=== PATIENT | male | born 1970 ===

== ENCOUNTER 2020-05-04 21:16 | Emergency (ER) | payer SELFPAY ==
[2020-05-04] MEDS ORDERED: SODIUM CHLORIDE 0.9% 1000 ML 1,000 ML IV ONE ×2 (21:53→22:56)
[2020-05-04] MEDS ORDERED: INSULIN REGULAR, HUMAN 100 UNITS/1 ML IV ONE ×2 (21:54→22:56)
--- NOTE | 2020-05-04 21:57 | Emergency Department Report ---
ED General Adult HPI - General Chief complaint: Hyperglycemia Stated complaint: HIGH BLOOD SUGAR Time Seen by Provider: 05/04/20 21:47 Source: patient Mode of arrival: Ambulatory Limitations: No Limitations - History of Present Illness Initial comments: Patient is 50 years old male with no significant past medical history. Patient presented to the ER stating that he went to a primary doctor today for increased urinary frequency and thirsty and they check his blood sugar and he was told that his blood sugar is high and he need to come to the ER. Translation by nurse Pedersen. Patient stated that he never saw any doctor recently. He denied any other medical problem. Patient denied any fever, chills, cough, nausea or vomiting. No chest pain or shortness of breath. - Related Data Previous Rx's Medication Instructions Recorded Last Taken Type glipiZIDE [Glucotrol] 5 mg PO BID #60 tablet 05/05/20 Unknown Rx metFORMIN [Glucophage] 500 mg PO BID #60 tablet 05/05/20 Unknown Rx Allergies Allergy/AdvReac Type Severity Reaction Status Date / Time No Known Allergies Allergy Verified 05/04/20 21:40 ED Review of Systems ROS: Stated complaint: HIGH BLOOD SUGAR Other details as noted in HPI Comment: All other systems reviewed and negative Constitutional: denies: chills, fever Respiratory: denies: cough, shortness of breath, SOB with exertion Cardiovascular: denies: chest pain, palpitations Gastrointestinal: denies: abdominal pain, nausea, vomiting, diarrhea, constipation, hematemesis, melena, hematochezia Genitourinary: frequency. denies: urgency, dysuria, hematuria, discharge, testicular pain, testicular mass Musculoskeletal: denies: back pain Neurological: denies: headache, weakness, numbness, paresthesias, confusion, abnormal gait ED Past Medical Hx - Past Medical History Previous Medical History?: No - Surgical History Past Surgical History?: Yes Additional Surgical History: left arm. - Social History Smoking Status: Current Some Day Smoker Substance Use Type: Alcohol - Medications Home Medications: Home Medications Medication Instructions Recorded Confirmed Last Taken Type glipiZIDE [Glucotrol] 5 mg PO BID #60 tablet 05/05/20 Unknown Rx metFORMIN [Glucophage] 500 mg PO BID #60 tablet 05/05/20 Unknown Rx ED Physical Exam - General Limitations: No Limitations General appearance: alert, in no apparent distress - Head Head exam: Present: atraumatic, normocephalic, normal inspection - Eye Eye exam: Present: normal appearance - ENT ENT exam: Present: normal exam, normal orophraynx, mucous membranes moist - Neck Neck exam: Present: normal inspection, full ROM. Absent: tenderness, meningismus - Respiratory Respiratory exam: Present: normal lung sounds bilaterally - Cardiovascular Cardiovascular Exam: Present: regular rate, normal rhythm, normal heart sounds - GI/Abdominal GI/Abdominal exam: Present: soft, normal bowel sounds. Absent: distended, tenderness, guarding, rebound, rigid, organomegaly, mass, bruit, pulsatile mass, hernia - Extremities Exam Extremities exam: Present: normal inspection, full ROM, normal capillary refill. Absent: tenderness, pedal edema, joint swelling, calf tenderness - Back Exam Back exam: Present: normal inspection, full ROM. Absent: CVA tenderness (R), CVA tenderness (L) - Neurological Exam Neurological exam: Present: alert, oriented X3, CN II-XII intact, normal gait, reflexes normal. Absent: motor sensory deficit - Psychiatric Psychiatric exam: Present: normal mood - Skin Skin exam: Present: warm, intact, normal color ED Course Vital Signs 05/04/20 05/04/20 05/04/20 21:29 22:30 22:37 Temperature 97.0 F L 97.7 F Pulse Rate 77 69 Respiratory 18 20 20 Rate Blood Pressure 144/82 Blood Pressure 128/69 [Left] O2 Sat by Pulse 96 99 98 Oximetry 05/05/20 05/05/20 05/05/20 00:30 02:30 04:18 Temperature 97.6 F 97.5 F L Pulse Rate 70 69 69 Respiratory 20 20 20 Rate Blood Pressure Blood Pressure 109/69 112/69 112/62 [Left] O2 Sat by Pulse 99 99 99 Oximetry ED Medical Decision Making - Lab Data Result diagrams: 05/04/20 22:05 05/04/20 22:05 - Medical Decision Making Patient is 50 years old male with no significant past medical history. Patient presented to the ER stating that he went to a primary doctor today for increased urinary frequency and thirsty and they check his blood sugar and he was told that his blood sugar is high and he need to come to the ER. Translation by nurse Pedersen. Patient stated that he never saw any doctor recently. He denied any other medical problem. Patient denied any fever, chills, cough, nausea or vomiting. No chest pain or shortness of breath. Patient received normal saline and insulin. Labs reviewed and showed significantly elevated blood glucose however blood glucose responded well to insulin. Patient given prescription for Metformin and glipizide and and to follow-up with his primary care physician in the next 2 to 3 days and to return to the ER if he develop any new symptoms. Critical care attestation.: If time is entered above; I have spent that time in minutes in the direct care of this critically ill patient, excluding procedure time. ED Disposition Clinical Impression: Acute hyperglycemia Disposition: DC-01 TO HOME OR SELFCARE Is pt being admited?: No Condition: Stable Instructions: Diabetes Mellitus Type 2 in Adults (ED) Prescriptions: metFORMIN [Glucophage] 500 mg PO BID #60 tablet glipiZIDE [Glucotrol] 5 mg PO BID #60 tablet Referrals: [facility] [Provider Group] - 3-5 Days
[2020-05-04 22:19] LABS: Hematocrit 42.3 % (35.5-45.6); Hemoglobin 14.6 gm/dl (11.8-15.2); Mean Corpuscular HGB Conc 34 % (32-34); Mean Corpuscular Volume 87 fl (84-94); Platelet Count 175 K/mm3 (140-440); Red Blood Count 4.88 M/mm3 (3.65-5.03); Red Cell Distribution Width 13.7 % (13.2-15.2)
[2020-05-04 22:26] LABS: Basophils % (Auto) 0.6 % (0.0-1.8); Eosinophils # (Auto) 0.1 K/mm3 (0.0-0.4); Eosinophils % (Auto) 1.3 % (0.0-4.3); Lymphocytes # (Auto) 1.3 K/mm3 (1.2-5.4); Lymphocytes % (Auto) 19.2 % (13.4-35.0); Monocytes # (Auto) 0.6 K/mm3 (0.0-0.8); Monocytes % (Auto) 9.1 % (0.0-7.3)
[2020-05-04 22:38] LABS: BUN/Creatinine Ratio 17; Blood Urea Nitrogen 15 mg/dL (9-20); Calcium 8.9 mg/dL (8.4-10.2); Hemolysis Index 43
[2020-05-04 23:42] LABS: Bilirubin,Urine NEG (Negative); Blood,Urine NEG (Negative); Color,Urine Colorless (Yellow); Protein,Urine <15 mg/dL mg/dL (Negative); Urobilinogen,Urine < 2.0 mg/dL (<2.0)
[2020-05-05] MEDS ORDERED: INSULIN REGULAR, HUMAN 100 UNITS/1 ML IV ONE (01:18)
[2020-05-05 04:20] VITALS: BP 112/62
== END 2020-05-05 04:30 | disposition home or self-care (01) ==
LOC: ED 21:16
DX: R73.9 Hyperglycemia, unspecified (principal); F17.200 Nicotine dependence, unspecified, uncomplicated
CPT/HCPCS: 36415; 80048; 81001; 82962; 85007; 85025; 96374; 96376; 99283; J7030; J1815